=== PATIENT | male | born 1950 | race Two or more races ===

== ENCOUNTER 2016-06-29 15:26 | Inpatient (IN) | payer OTHER, MEDICAID ==
[~2016-06-29] VITALS: Ht 185.4 cm; Wt 61.7 kg
[2016-06-29] MEDS ORDERED: FENO145T20 PO (16:02)
[2016-06-29] MEDS ORDERED: GLIM2TAB2 PO (16:02)
[2016-06-29] MEDS ORDERED: EZET1TAB7 PO (16:02)
[2016-06-29] MEDS ORDERED: ASEN10TA9 SL (16:02)
[2016-06-29] MEDS ORDERED: LORA1TAB82 PO (16:02)
[2016-06-29] MEDS ORDERED: ASPI-991 PO (16:02)
[2016-06-29] MEDS ORDERED: SITA100T PO (16:02)
[2016-06-29] MEDS ORDERED: LEVO125T8 PO (16:02)
[2016-06-29] MEDS ORDERED: SUMA100T16 PO (16:02)
[2016-06-29] MEDS ORDERED: PERP8TAB6 PO (16:02)
[2016-06-29] MEDS ORDERED: OMEP40CA37 PO (16:15)
[2016-06-29] MEDS ORDERED: MIRT15TA7 PO (16:15)
[2016-06-29] MEDS ORDERED: FLUT1DIS3 IH (16:15)
[2016-06-29] MEDS ORDERED: HYDR-548 PO (16:15)
[2016-06-29] MEDS ORDERED: DICL50TA9 PO (16:53)
[2016-06-29] MEDS ORDERED: DUTA1CPM PO (17:00)
[2016-06-29] MEDS ORDERED: MAG HYDROX/AL HYDROX/SIMETH 30 ML UDC PO PRN (17:30)
[2016-06-29] MEDS ORDERED: LORAZEPAM 0.5 MG TABLET PO PRN (17:30)
[2016-06-29] MEDS ORDERED: MAGNESIUM HYDROXIDE 30 ML UDC PO PRN (17:30)
[2016-06-29] MEDS ORDERED: HYDROCODONE/APAP 10/325MG 1 EA TABLET PO PRN (18:30)
[2016-06-29] MEDS ORDERED: SUMATRIPTAN SUCCINATE 100 MG TABLET PO PRN (18:30)
[2016-06-29] MEDS ORDERED: DEXTROSE 50%-WATER 50 ML DISP.SYRIN IV PRN ×2 (18:30)
[2016-06-29] MEDS ORDERED: BLOOD SUGAR DIAGNOSTIC 1 EACH STRIP IN SCH (18:30)
[2016-06-29] MEDS ORDERED: INSULIN REGULAR, HUMAN 100 UNIT/ML 3 ML VIAL SQ PRN (18:30)
[2016-06-29 18:31] VITALS: BP 151/76
[2016-06-29] MEDS ORDERED: FENO134C PO (19:09)
[2016-06-29 19:40] VITALS: BP 117/72
[2016-06-29] MEDS ORDERED: PERPHENAZINE 8 MG PO SCH ×2 (22:00)
[2016-06-29] MEDS: BLOOD SUGAR DIAGNOSTIC 1 EACH STRIP IN SCH (22:00)
[2016-06-29] MEDS: TEMAZEPAM 7.5 MG CAPSULE PO PRN (22:19)
[2016-06-30] MEDS: BLOOD SUGAR DIAGNOSTIC 1 EACH STRIP IN SCH ×4 (07:30→22:00)
[2016-06-30 08:00] VITALS: BP 129/80
[2016-06-30 08:19] LABS: BASOPHILS # (AUTO) 0.1 /CMM (0.0-0.2); BASOPHILS % (AUTO) 0.6 % (0.0-2.0); DIFF TOTAL % 100 %; EOSINOPHILS # (AUTO) 0.4 /CMM (0.0-0.7); EOSINOPHILS % (AUTO) 4.7 % (0.0-6.0); HEMATOCRIT 48 % (39-51); HEMOGLOBIN 15.9 g/dL (13.5-17.5); LYMPHOCYTES # (AUTO) 2.2 /CMM (0.8-4.8); LYMPHOCYTES % (AUTO) 25.8 % (20.0-44.0); MEAN CORPUSCULAR HEMOGLOBIN 31 PG (26.0-33.0); MEAN CORPUSCULAR HGB CONC 33 g/dl (31.0-36.0); MEAN CORPUSCULAR VOLUME 92 fL (80-96); MONOCYTES # (AUTO) 0.6 /CMM (0.1-1.30); MONOCYTES % (AUTO) 7.2 % (2.0-12.0); NEUTROPHILS # (AUTO) 5.3 /CMM (1.8-8.9); NEUTROPHILS % (AUTO) 61.7 % (43.0-81.0); PLATELET COUNT (AUTO) 221 /CMM (150-450); RED BLOOD CELL COUNT(AUTO) 5.21 MIL/uL (4.5-6.0); WHITE BLOOD COUNT (AUTO) 8.6 K/uL (4.3-11.0)
[2016-06-30 08:29] LABS: ALBUMIN 3.9 g/dL (3.4-5.0); BILIRUBIN,TOTAL 0.5 mg/dL (0.2-1.0); CALCIUM, SERUM 9.4 mg/dL (8.5-10.1); CREATININE 1.1 mg/dL (0.6-1.3); PHOSPHORUS 3.1 mg/dL (2.5-4.9); POTASSIUM 4.2 mmol/L (3.5-5.1); TOTAL PROTEIN, SERUM 7.4 g/dL (6.4-8.2)
[2016-06-30] MEDS: NICOTINE PATCH (14MG) 14 MG PATCH.TD24 TD SCH (08:43)
[2016-06-30] MEDS: PANTOPRAZOLE 40 MG TABLET.DR PO SCH (08:43)
[2016-06-30] MEDS: ASPIRIN EC 81 MG TABLET.DR PO SCH (08:43)
[2016-06-30] MEDS: LEVOTHYROXINE SODIUM 125 MCG TABLET PO SCH (08:43)
[2016-06-30] MEDS: DUTASTERIDE PO SCH (08:44)
[2016-06-30] MEDS: TAMSULOSIN HCL PO SCH (08:44)
[2016-06-30] MEDS: FLUTICASONE/SALMETEROL DISKUS IH SCH ×2 (08:44→18:26)
[2016-06-30] MEDS: TRICOR 134 MG PO SCH (08:44)
[2016-06-30] MEDS: SIMVASTATIN PO SCH (08:45)
[2016-06-30] MEDS: EZETIMIBE PO SCH (08:45)
[2016-06-30] MEDS ORDERED: GLIMEPIRIDE 1 MG TABLET PO PRN (09:00)
[2016-06-30] MEDS: INSULIN REGULAR, HUMAN 100 UNIT/ML 3 ML VIAL SQ PRN ×2 (12:34→13:36)
[2016-06-30 16:14] VITALS: BP 136/76
[2016-06-30 20:00] VITALS: BP 125/70
[2016-06-30] MEDS: TEMAZEPAM 7.5 MG CAPSULE PO PRN (21:20)
[2016-06-30] MEDS: ACETAMINOPHEN 325 MG TABLET PO PRN (21:20)
[2016-06-30] MEDS ORDERED: QUETIAPINE FUMARATE 25 MG TABLET PO SCH (22:00)
[2016-07-01] MEDS: BLOOD SUGAR DIAGNOSTIC 1 EACH STRIP IN SCH ×5 (04:50→21:17)
[2016-07-01] MEDS: INSULIN REGULAR, HUMAN 100 UNIT/ML 3 ML VIAL SQ PRN ×3 (07:44→17:36)
[2016-07-01 08:00] VITALS: BP 134/76
[2016-07-01] MEDS: LEVOTHYROXINE SODIUM 125 MCG TABLET PO SCH (08:15)
[2016-07-01] MEDS: ASPIRIN EC 81 MG TABLET.DR PO SCH (08:15)
[2016-07-01] MEDS: NICOTINE PATCH (14MG) 14 MG PATCH.TD24 TD SCH (08:16)
[2016-07-01] MEDS: PANTOPRAZOLE 40 MG TABLET.DR PO SCH (08:16)
[2016-07-01] MEDS: TRICOR 134 MG PO SCH (08:17)
[2016-07-01] MEDS: TAMSULOSIN HCL PO SCH (08:17)
[2016-07-01] MEDS: SIMVASTATIN PO SCH (08:17)
[2016-07-01] MEDS: EZETIMIBE PO SCH (08:17)
[2016-07-01] MEDS: FLUTICASONE/SALMETEROL DISKUS IH SCH ×2 (08:17→17:43)
[2016-07-01] MEDS: DUTASTERIDE PO SCH (08:17)
[2016-07-01] MEDS ORDERED: QUETIAPINE FUMARATE 25 MG TABLET PO SCH ×2 (09:00→22:00)
[2016-07-01] MEDS: QUETIAPINE FUMARATE 25 MG TABLET PO SCH ×2 (14:01→17:43)
[2016-07-01 16:00] VITALS: BP 131/86
[2016-07-01 20:09] VITALS: BP 160/91
[2016-07-01] MEDS: ACETAMINOPHEN 325 MG TABLET PO PRN (21:17)
[2016-07-01] MEDS: TEMAZEPAM 7.5 MG CAPSULE PO PRN (21:17)
[2016-07-02] MEDS: BLOOD SUGAR DIAGNOSTIC 1 EACH STRIP IN SCH ×4 (07:30→22:14)
[2016-07-02] MEDS: PANTOPRAZOLE 40 MG TABLET.DR PO SCH (07:30)
[2016-07-02 08:04] VITALS: BP 117/85
[2016-07-02] MEDS: LEVOTHYROXINE SODIUM 125 MCG TABLET PO SCH (09:06)
[2016-07-02] MEDS: NICOTINE PATCH (14MG) 14 MG PATCH.TD24 TD SCH (09:06)
[2016-07-02] MEDS: QUETIAPINE FUMARATE 25 MG TABLET PO SCH ×3 (09:06→16:22)
[2016-07-02] MEDS: ASPIRIN EC 81 MG TABLET.DR PO SCH (09:06)
[2016-07-02] MEDS: DUTASTERIDE PO SCH (09:09)
[2016-07-02] MEDS: FLUTICASONE/SALMETEROL DISKUS IH SCH ×2 (09:09→16:35)
[2016-07-02] MEDS: SIMVASTATIN PO SCH (09:09)
[2016-07-02] MEDS: EZETIMIBE PO SCH (09:09)
[2016-07-02] MEDS: TAMSULOSIN HCL PO SCH (09:09)
[2016-07-02] MEDS: TRICOR 134 MG PO SCH (09:09)
[2016-07-02] MEDS: INSULIN REGULAR, HUMAN 100 UNIT/ML 3 ML VIAL SQ PRN (09:10)
[2016-07-02 16:00] VITALS: BP 133/84
[2016-07-02 19:58] VITALS: BP 132/82
[2016-07-02] MEDS: TEMAZEPAM 7.5 MG CAPSULE PO PRN (20:34)
[2016-07-02] MEDS ORDERED: QUETIAPINE FUMARATE 25 MG TABLET PO SCH (22:00)
[2016-07-03] MEDS: BLOOD SUGAR DIAGNOSTIC 1 EACH STRIP IN SCH (07:59)
[2016-07-03] MEDS ORDERED: QUETIAPINE FUMARATE 25 MG TABLET PO SCH (08:00)
[2016-07-03] MEDS: INSULIN REGULAR, HUMAN 100 UNIT/ML 3 ML VIAL SQ PRN ×2 (08:01→08:04)
[2016-07-03] MEDS: NICOTINE PATCH (14MG) 14 MG PATCH.TD24 TD SCH (08:50)
[2016-07-03] MEDS: LEVOTHYROXINE SODIUM 125 MCG TABLET PO SCH (08:50)
[2016-07-03] MEDS: TRICOR 134 MG PO SCH (08:50)
[2016-07-03] MEDS: ASPIRIN EC 81 MG TABLET.DR PO SCH (08:50)
[2016-07-03] MEDS: PANTOPRAZOLE 40 MG TABLET.DR PO SCH (08:51)
[2016-07-03] MEDS: DUTASTERIDE PO SCH (08:54)
[2016-07-03] MEDS: TAMSULOSIN HCL PO SCH (08:54)
[2016-07-03] MEDS: EZETIMIBE PO SCH (08:55)
[2016-07-03] MEDS: SIMVASTATIN PO SCH (08:55)
[2016-07-03] MEDS: FLUTICASONE/SALMETEROL DISKUS IH SCH (08:55)
[2016-07-03 09:04] VITALS: BP 118/61
== END 2016-07-03 10:10 | disposition home or self-care (01) | DRG 885 ==
LOC: ER 15:27 → GPS 16:25
PROVIDERS: ADMIT Psychiatry & Neurology Psychosomatic Medicine; ATTEND Internal Medicine
DX: F29 Unspecified psychosis not due to a substance or known physiological condition (principal); F02.80 Dementia in other diseases classified elsewhere, unspecified severity, without behavioral disturbance, psychotic disturbance, mood disturbance, and anxiety; E11.65 Type 2 diabetes mellitus with hyperglycemia; G30.9 Alzheimer's disease, unspecified; F41.9 Anxiety disorder, unspecified; F17.210 Nicotine dependence, cigarettes, uncomplicated; E78.5 Hyperlipidemia, unspecified; E03.9 Hypothyroidism, unspecified; I10 Essential (primary) hypertension; J44.9 Chronic obstructive pulmonary disease, unspecified; N40.0 Benign prostatic hyperplasia without lower urinary tract symptoms; Z91.14 Patient's other noncompliance with medication regimen; Z91.5 Personal history of self-harm; F43.10 Post-traumatic stress disorder, unspecified; Z73.6 Limitation of activities due to disability
CPT/HCPCS: 36415; 80053-TC; 82962-TC; 83735-TC; 84100-TC; 84443-TC; 85025-TC; 87081-TC; A4606; J1815; Z7610